=== PATIENT | male | born 1965 ===

== ENCOUNTER 2024-10-27 05:10 | Day surgery (SDC) | payer OTHER ==
[2024-10-17 13:05] LABS: URINE APPEARANCE Clear; URINE BILIRRUBIN Negative (NEGATIVE); URINE BLOOD Negative; URINE COLOR Yellow; URINE GLUCOSE Negative (NEGATIVE); URINE KETONE Negative (NEGATIVE); URINE LEUKOCYTE Negative; URINE NITRATE Negative; URINE PROTEIN Negative (NEGATIVE); URINE UROBILINOGEN 0.2 E.U./dl
[2024-10-17 13:06] LABS: HEMATOCRIT 46.1 % (39.0-48.0); HEMOGLOBIN 15.2 g/dL (13-16.00); MEAN CELL VOLUME 83.5 fL (80.0-100.00); MEAN CORPUSCULAR HEMOGLOBIN 27.5 pg (27.00-32.0); MEAN CORPUSCULAR HGB CONC 32.9 g/dl (32.0-36.0); PLATELET COUNT 221 K/uL (150-450); RED BLOOD COUNT 5.52 M/uL (4.00-6.00); RED CELL DISTRIBUTION WIDTH 14.1 % (11.5-14.5)
[2024-10-17 13:09] LABS: URINE RBC 3.8 uL (0.0-20.8)
[2024-10-17 13:12] LABS: URINE BACTERIA 2.5 uL (0.0-1933); URINE EPITHELIAL CELLS 0.3 uL (0.0-38.8); URINE WBC 0.4 uL (0.0-23.2)
[2024-10-17 13:24] LABS: PARTIAL THROMBOPLASTIN TIME 30.5 SECONDS (22.0-34.0); PROTHROMBIN TIME 10.9 SECONDS (9.0-11.5)
[2024-10-17 14:23] LABS: ALBUMIN 3.9 gm/dL (3.4-5.0); CALCIUM 9.6 mg/dL (8.5-10.1); CREATININE SERUM 0.96 mg/dL (0.70-1.30); GFR 79.9; PHOSPHOROUS 3.6 mg/dL (2.5-4.9); POTASSIUM 4.86 mEq/L (3.5-5.1)
[~2024-10-27 05:10] MED LIST: ADULT LOW DOSE81 M1; B 12; CARVEDILOL3.125 MG; COZAAR; ELIQUIS; NORVASC; ZOCOR20 MG
[2024-10-27] MEDS ORDERED: MORPHINE SULFATE 4 MG/ML VIAL IV ONE (08:55)
[2024-10-27] MEDS ORDERED: CEPHALEXIN500 MG PO (08:58)
[2024-10-27] MEDS ORDERED: CEFAZOLIN SODIUM 1,000 MG VIAL IV ONE (09:00)
[2024-10-27] MEDS ORDERED: BACITRACIN 28.35 GM OINT.TUBE TOP ONE (09:00)
[2024-10-27] MEDS ORDERED: LIDOCAINE HCL 1%/EPINEPHRINE 20ML VIAL IJ ONE (09:00)
== END 2024-10-27 10:15 | disposition home or self-care (01) ==
LOC: CIR.AMB 05:10
PROVIDERS: ATTEND Otolaryngology Otology & Neurotology
DX: H61.301 Acquired stenosis of right external ear canal, unspecified (principal); S01.301A Unspecified open wound of right ear, initial encounter